=== PATIENT | male | born 1960 | race Caucasian/White ===

== ENCOUNTER 2021-08-21 21:38 | Emergency (ER) | payer BC | END 2021-08-22 00:05 | disposition home or self-care (01) | LOC: JD.ED 21:38 | DX: N13.2 Hydronephrosis with renal and ureteral calculous obstruction (principal); Z86.16 Personal history of COVID-19; Z72.0 Tobacco use | CPT/HCPCS: 36415; 74176; 74176-26; 80053; 81001; 83690; 85025; 99284; 99284-25 ==